=== PATIENT | male | born 1995 | race Two or more races ===

== ENCOUNTER 2022-09-18 19:42 | Emergency (ER) | payer OTHER ==
[~2022-09-18] VITALS: Ht 170.2 cm; Wt 57.6 kg
[~2022-09-18 19:42] MED LIST: ACETAMINOPHEN650 M2 PO; AZITHROMYCIN500 MG PO; MUCINEX DM ER1 EACH PO; VALACYCLOVIR1000 MG PO; ZYRTEC10 M3 PO
== END 2022-09-18 21:05 | disposition home or self-care (01) ==
LOC: ER 19:42
DX: J03.90 Acute tonsillitis, unspecified (principal)